=== PATIENT | male | born 1935 | race Caucasian/White ===

== ENCOUNTER 2016-05-25 08:04 | Outpatient (CLI) | payer MEDICARE, BC ==
[2016-05-25] VITALS (22 sets, daily range): BP systolic 121–183; BP diastolic 52–95; PULSE 54–83; TEMP 97.2
[~2016-05-25] VITALS: Ht 177.8 cm; Wt 92.7 kg
[~2016-05-25 08:04] MED LIST: FLEXERIL 1010 MG/TAB PO; HYTRIN10 MG PO; LOPRESSOR 225 MG/TAB PO; NORVASC 10MG10 MG PO; PROTONIX 40MG T40 MG PO; ULTRAM 50MG TAB50 MG PO; VITAMIN C500 MG PO; VITAMIN D31000 I1 PO; ZYLOPRIM 300MG300 MG PO
[2016-05-25] MEDS ORDERED: ULORIC80 MG PO (09:24)
[2016-05-25] MEDS ORDERED: PROSCAR 5MG5 MG PO (09:25)
[2016-05-25] MEDS ORDERED: NORVASC 10MG10 MG PO (09:25)
[2016-05-25] MEDS ORDERED: PRINIVIL40 MG PO (09:25)
[2016-05-25] MEDS ORDERED: HYTRIN 1MG C1 MG/CAP PO (09:26)
[2016-05-25] MEDS ORDERED: ZOCOR 40MG40 MG PO (09:27)
[2016-05-25] MEDS ORDERED: PROTONIX 40MG T40 MG PO (09:27)
[2016-05-25 09:36] LABS: HEMATOCRIT 37.9 % (42.0-52.0); HEMOGLOBIN 12.3 g/dl (13.5-18.0); MEAN CELL VOLUME 93 fl (80.0-100.0); MEAN CORPUSCULAR HEMOGLOBIN 30 pg (27.0-31.0); MEAN CORPUSCULAR HGB CONC 33 g/dl (33.0-37.0); MEAN PLATELET VOLUME 9.6 fl (7.4-10.4); PLATELET COUNT 142 K/mm3 (130-400); RED BLOOD COUNT 4.08 M/mm3 (4.20-5.60); REDCELL DISTRIBUTION WIDTH-CV 13.2 % (11.5-14.5); WHITE BLOOD COUNT 8.4 K/mm3 (4.8-10.8)
[2016-05-25 09:57] LABS: PROTHROMBIN TIME 11.6 SECONDS (9.7-12.8)
== END 2016-05-25 19:31 ==
LOC: COL.RAD 08:04
PROVIDERS: Internal Medicine Nephrology
DX: N26.9 Renal sclerosis, unspecified (principal); I12.9 Hypertensive chronic kidney disease with stage 1 through stage 4 chronic kidney disease, or unspecified chronic kidney disease; R59.0 Localized enlarged lymph nodes

== ENCOUNTER 2016-05-27 13:08 | Observation (INO) | payer MEDICARE, BC ==
[~2016-05-27] VITALS: Ht 180.3 cm; Wt 90.9 kg
[~2016-05-27 13:08] MED LIST changes: +HYTRIN 1MG C1 MG/CAP PO; +PRINIVIL40 MG PO; +PROSCAR 5MG5 MG PO; +ULORIC80 MG PO; +ZOCOR 40MG40 MG PO
[2016-05-27 13:40] VITALS: BP 140/66; PULSE 76; TEMP 97.5
[2016-05-27 14:19] LABS: BASO % 0.2 % (0.0-2.0); GRAN # 6.6 (1.4-6.5); GRAN % 80.2 % (42.2-75.2); LYMPH # 1.2 (1.2-3.4); MEAN CELL VOLUME 91 fl (80.0-100.0); MEAN CORPUSCULAR HGB CONC 34 g/dl (33.0-37.0); MEAN PLATELET VOLUME 9.7 fl (7.4-10.4); MONO # 0.4 (0.1-0.6); MONO % 5.1 % (1.7-9.3); PLATELET COUNT 138 K/mm3 (130-400); RED BLOOD COUNT 3.78 M/mm3 (4.20-5.60); REDCELL DISTRIBUTION WIDTH-CV 12.8 % (11.5-14.5); WHITE BLOOD COUNT 8.2 K/mm3 (4.8-10.8)
[2016-05-27 14:21] LABS: HEMATOCRIT 34.5 % (42.0-52.0); HEMOGLOBIN 11.6 g/dl (13.5-18.0); MEAN CORPUSCULAR HEMOGLOBIN 31 pg (27.0-31.0)
[2016-05-27 18:51] VITALS: BP 153/69; PULSE 86; TEMP 97.6
[2016-05-27 20:00] VITALS: BP 153/69; PULSE 86
[2016-05-27 21:41] VITALS: BP 170/63; PULSE 92; TEMP 98.5
[2016-05-27 21:42] VITALS: BP 170/63; PULSE 92
[2016-05-28 02:06] VITALS: BP 146/72; PULSE 78; TEMP 98.2
[2016-05-28 05:22] VITALS: BP 158/67; PULSE 70; TEMP 98.2
[2016-05-28 10:06] VITALS: BP 144/66; PULSE 67; TEMP 97.9
[2016-05-28 15:27] VITALS: BP 147/61; PULSE 64; TEMP 97.6
[2016-05-28 17:56] VITALS: BP 140/62; PULSE 62; TEMP 98.4
[2016-05-28 22:29] VITALS: BP 124/46; PULSE 67; TEMP 98.6
[2016-05-29 05:11] VITALS: BP 126/65; PULSE 80; TEMP 98.4
[2016-05-29 07:02] LABS: MEAN CELL VOLUME 93 fl (80.0-100.0); MEAN CORPUSCULAR HGB CONC 33 g/dl (33.0-37.0); PLATELET COUNT 128 K/mm3 (130-400); RED BLOOD COUNT 3.22 M/mm3 (4.20-5.60); REDCELL DISTRIBUTION WIDTH-CV 13.3 % (11.5-14.5); WHITE BLOOD COUNT 8.1 K/mm3 (4.8-10.8)
[2016-05-29 07:12] LABS: CALCIUM 8.3 mg/dL (8.4-10.2); CREATININE, serum 2.19 mg/dL (0.66-1.25); POTASSIUM 4.6 mmol/L (3.4-5.0)
[2016-05-29 07:18] LABS: HEMOGLOBIN 9.8 g/dl (13.5-18.0); MEAN CORPUSCULAR HEMOGLOBIN 30 pg (27.0-31.0)
== END 2016-05-29 11:30 | disposition home or self-care (01) ==
LOC: SDCO 13:08 → JCC 13:08 → SDCO 13:11 → JCC 13:11
PROVIDERS: Urology
DX: R31.0 Gross hematuria (principal); N23 Unspecified renal colic
CPT/HCPCS: OP; G0378; G0379; J1170; J2405; J7030

== ENCOUNTER → 2016-06-26 | Outpatient (CLI) | payer MEDICARE, BC ==
[~2016-06-26] VITALS: Ht 180.3 cm; Wt 94.9 kg
[2016-06-26] VITALS (9 sets, daily range): BP systolic 161–178; BP diastolic 78–97; PULSE 54–71
== END ==
LOC: COL.RAD 10:51
DX: C83.13 Mantle cell lymphoma, intra-abdominal lymph nodes (principal); R59.0 Localized enlarged lymph nodes
CPT/HCPCS: 18871

== ENCOUNTER → 2020-12-03 | Outpatient (CLI) | payer MEDICARE, BC ==
[~2020-12-03] VITALS: Ht 180.3 cm; Wt 90.0 kg
[2020-12-03 08:48] VITALS: BP 183/80; PULSE 57; TEMP 97.8
[2020-12-03 09:43] VITALS: BP 172/71; PULSE 66
== END ==
LOC: COL.RAD 08:24
DX: C85.90 Non-Hodgkin lymphoma, unspecified, unspecified site (principal); Z98.890 Other specified postprocedural states

== ENCOUNTER 2021-11-17 07:06 | Day surgery (SDC) | payer MEDICARE, BC ==
[~2021-11-17] VITALS: Ht 180.3 cm; Wt 85.2 kg
[2021-11-17] VITALS (8 sets, daily range): BP systolic 103–139; BP diastolic 54–81; PULSE 53–91; TEMP 98.3
[2021-11-17 07:58] LABS: BASO % 0.7 % (0.0-2.0); EOS # 0.2 K/mm3 (0.0-0.7); EOS % 3.3 % (0.0-4.0); GRAN # 4.4 K/mm3 (1.4-6.5); LYMPH # 0.5 K/mm3 (1.2-3.4); LYMPH % 9.4 % (20.0-51.0); MEAN CELL VOLUME 105 fl (80.0-100.0); MEAN CORPUSCULAR HGB CONC 34 g/dl (33.0-37.0); MONO # 0.5 K/mm3 (0.1-0.6); MONO % 9.3 % (1.7-9.3); PLATELET COUNT 213 K/mm3 (130-400); RED BLOOD COUNT 2.76 M/mm3 (4.20-5.60); REDCELL DISTRIBUTION WIDTH-CV 13.3 % (11.5-14.5)
[2021-11-17 08:04] LABS: HEMATOCRIT 28.9 % (42.0-52.0); HEMOGLOBIN 9.7 g/dl (13.5-18.0); INR 1.5 (0.8-3.0); MEAN CORPUSCULAR HEMOGLOBIN 35 pg (27-31); PROTHROMBIN TIME 17.7 SECONDS (9.7-12.8)
[2021-11-17 08:06] LABS: PARTIAL THROMBOPLASTIN TIME 35.6 SECONDS (26.0-37.0)
[2021-11-17] MEDS ORDERED: HYTRIN 1MG C1 MG/CAP PO (08:10)
[2021-11-17] MEDS ORDERED: LIPITOR20 MG PO (08:12)
[2021-11-17] MEDS ORDERED: VITAMIN D31000 IU PO (08:13)
[2021-11-17 08:15] LABS: CALCIUM 8.7 mg/dL (8.4-10.2); CREATININE, serum 1.36 mg/dL (0.72-1.25); MAGNESIUM 1.5 mg/dL (1.6-2.6); POTASSIUM 3.3 mmol/L (3.5-4.5)
[2021-11-17 08:35] LABS: THYROID STIMULATING HORMONE 4.088 uIU/mL (0.350-4.940)
[2021-11-17] MEDS ORDERED: TOPROL XL 25MG25 MG PO (10:10)
[2021-11-17] MEDS ORDERED: NORVASC 5MG5 MG/TAB PO (10:11)
[2021-11-17] MEDS ORDERED: ELIQUIS 2.5 PO (10:11)
[2021-11-17] MEDS ORDERED: PACERONE400 MG PO (10:12)
[2021-11-17] MEDS ORDERED: K-DUR20 MEQ PO (10:27)
[2021-11-17] MEDS ORDERED: MAG-OX 400400 MG/TAB PO (10:27)
--- NOTE | 2021-11-17 12:40 | NUR ---
DC instructions were reviewed and length with pt and family. All express understanding. Dr Lopez aware of hematuria. Pt will follow closely with PCP for this, and has upcoming appt with urology they will try to move up if possible for cystoscopy. Port was flushed and deaccessed per protocol, site covered with bandaid. Pt assisted out to family's car by wheelchair. Gait is steady and he has tolerated PO fluids without issue.
== END 2021-11-17 12:40 | disposition home or self-care (01) ==
LOC: COL.CAR 07:06
PROVIDERS: Internal Medicine Cardiovascular Disease
DX: I48.91 Unspecified atrial fibrillation (principal); I13.0 Hypertensive heart and chronic kidney disease with heart failure and stage 1 through stage 4 chronic kidney disease, or unspecified chronic kidney disease; R31.9 Hematuria, unspecified; I34.0 Nonrheumatic mitral (valve) insufficiency; I35.1 Nonrheumatic aortic (valve) insufficiency; E78.2 Mixed hyperlipidemia; Z79.899 Other long term (current) drug therapy; Z79.01 Long term (current) use of anticoagulants; Z87.891 Personal history of nicotine dependence; Z86.16 Personal history of COVID-19; Z85.72 Personal history of non-Hodgkin lymphomas
CPT/HCPCS: J1644; J2704; J3475; J3480